=== PATIENT | male | born 1940 | race African-American/Black ===

== ENCOUNTER 2018-01-23 12:30 | Outpatient (CLI) | payer MEDICARE, BC ==
[2018-01-23 13:10] LABS: Bilirubin Negative (Negative); Blood, Urine Trace (Negative); Glucose, Urine (Dipstick) 250 mg/dL (Negative); Leukocyte Trace (Negative); Nitrite Negative (Negative); Protein, Urine (Dipstick) Negative (Neg-Trace); Specific Gravity, Urine 1.025 (1.005-1.030); Urobilinogen 0.2 mg/dL (0.2-1.0); pH, Urine 5.5 (5.0-9.0)
[2018-01-23 13:20] LABS: Anion Gap 12 mmol/L (10-20); BUN (Urea Nitrogen) 13 mg/dL (8.4-25.7); Calc. Creatinine Clearance 0 mL/min (70-130); Calcium 10.2 mg/dL (7.8-10.44); Carbon Dioxide 26 mmol/L (23-31); Chloride 107 mmol/L (98-107); Estimated GFR-MDRD Greater than 90; Glucose 111 mg/dL (83-110); Potassium 3.9 mmol/L (3.5-5.1); Sodium 141 mmol/L (136-145)
[2018-01-23 13:29] LABS: Clarity Hazy (Clear); RBC/HPF 0-3 HPF (0-3)
[2018-01-23 13:30] LABS: Bacteria/HPF 1+ HPF (None Seen); Squamous Epithelial None Seen HPF (0-3); WBC/HPF 0-3 HPF (0-3)
--- NOTE | 2018-01-23 14:40 | ULT ---
BILATERAL RENAL ULTRASOUND: Date: 01/23/18 COMPARISON: 10/15/16. HISTORY: Polycystic kidney. TECHNIQUE: Sagittal and transverse imaging of the kidneys is performed. FINDINGS: Right kidney measures 9.6 x 5.4 x 5.3 cm. There is an anechoic focus in the right renal pelvis, maria del rosario tible with a parapelvic cyst measuring 0.8 x 0.7 x 0.7 cm. There is a second anechoic focus in the lo wer pole of the right kidney measuring 0.9 cm, also likely due to a small parapelvic cyst. Left kidney measures 11.5 x 6.0 x 6.4 cm. There are multiple anechoic foci in the left kidney compati ble with renal cysts. The largest cyst measures 2.8 x 2.5 x 3.0 cm. No hydronephrosis. Prostate is enlarged, measuring 6.2 x 5.6 x 6.1 cm. Urinary bladder is unremarkable. IMPRESSION: 1. No hydronephrosis. 2. Multiple anechoic foci involving the left kidney, similar to the previous examination suggesting multiple left renal cysts. Right parapelvic cysts are also noted. 3. Enlarged prostate gland. POS: [facility]
--- NOTE | 2018-01-23 14:41 | RAD ---
ONE VIEW ABDOMEN: History: Polycystic kidney disease. Renal calculi. Comparison: 10-15-16 FINDINGS: Nonspecific bowel gas pattern. Scattered fecal material in a nondistended, nondilated colon. Nonspeci fic hyperdensity in the right upper quadrant may represent metal. Etiology is uncertain. No renal calculi. IMPRESSION: Nonspecific bowel gas pattern as above. Questionable metallic density projecting over the right upper quadrant, not appreciated on the prior exam. POS: [facility]
== END 2018-01-23 12:31 | disposition home or self-care (01) ==
LOC: SCSULT 12:30
PROVIDERS: ATTEND Urology
DX: N40.0 Benign prostatic hyperplasia without lower urinary tract symptoms (principal); Q61.3 Polycystic kidney, unspecified; Z87.442 Personal history of urinary calculi
CPT/HCPCS: 36415; 74018; 76770; 80048; 81001; 87077; 87086; 87186

== ENCOUNTER 2018-07-15 10:21 | Outpatient (CLI) | payer MEDICARE, BC ==
[2018-07-15 11:39] LABS: Mean Corpuscular HGB CONC 32.8 g/dL (32.0-36.0); Mean Corpuscular Hemoglobin 30.1 pg (27.0-31.0); Mean Corpuscular Volume 91.9 fL (78.0-98.0); Mean Platelet Volume 8.4 fL (7.4-10.4); Platelet Count 234 thou/uL (130-400); RBC Distribution Width 11.9 % (11.5-14.5); Red Blood Cell (RBC) Count 5.32 mill/uL (4.70-6.10); White Blood Cell (WBC) Count 5.6 thou/uL (4.8-10.8)
[2018-07-15 11:46] LABS: Bilirubin Negative (Negative); Blood, Urine Negative (Negative); Clarity CLEAR (Clear); Glucose, Urine (Dipstick) Negative (Negative); Leukocyte Small (Negative); Nitrite Negative (Negative); Protein, Urine (Dipstick) Negative (Neg-Trace); Specific Gravity, Urine 1.022 (1.002-1.036); Urobilinogen 0.2 mg/dL (0.2-1.0); pH, Urine 5.5 (5.0-9.0)
[2018-07-15 11:48] LABS: Bacteria/HPF None Seen HPF (None Seen); Hyaline Casts/LPF 0-3 HYALINE CAST LPF (0-3 Hyaline); PTT 26.1 SEC (22.9-36.1); Pathc Cast-AUWi Flag 0.14 (0-2.49); Prothrombin Time 13.1 SEC (12.0-14.7); Squamous Epithelial None Seen HPF (0-3)
[2018-07-15 12:02] LABS: Anion Gap 14 mmol/L (10-20); BUN (Urea Nitrogen) 12 mg/dL (8.4-25.7); Calc. Creatinine Clearance 0 mL/min (70-130); Calcium 9.9 mg/dL (7.8-10.44); Carbon Dioxide 22 mmol/L (23-31); Chloride 105 mmol/L (98-107); Estimated GFR-MDRD Greater than 90; Glucose 109 mg/dL (83-110)
[2018-07-15 12:23] LABS: Sodium 137 mmol/L (136-145)
== END 2018-07-15 10:22 | disposition home or self-care (01) ==
LOC: LABBT 10:21
PROVIDERS: ATTEND Urology
DX: Z01.818 Encounter for other preprocedural examination (principal); N40.0 Benign prostatic hyperplasia without lower urinary tract symptoms; N35.919 Unspecified urethral stricture, male, unspecified site
CPT/HCPCS: 80048; 81001; 85027; 85610; 85730; 87086; 93005; 93010

== ENCOUNTER 2018-07-25 09:44 | Outpatient (CLI) | payer MEDICARE, BC | END 2018-07-25 09:45 | disposition home or self-care (01) | LOC: LABBT 09:44 | PROVIDERS: ATTEND Urology | DX: Z01.812 Encounter for preprocedural laboratory examination (principal); N40.0 Benign prostatic hyperplasia without lower urinary tract symptoms; N35.911 Unspecified urethral stricture, male, meatal | CPT/HCPCS: 86850; 86900; 86901 ==

== ENCOUNTER 2018-07-30 06:48 | Observation (INO) | payer MEDICARE, BC ==
[2018-07-30] MEDS ORDERED: Levofloxacin 500 mg/D5W 100 ml Premix Bag ONE (07:40)
[2018-07-30] MEDS ORDERED: cefTRIAXone\\ROCEPHIN 1 GM VIAL ONE (07:40)
[2018-07-30] MEDS ORDERED: Sodium Chloride 0.9% 100 ML ONE (07:40)
[2018-07-30] MEDS ORDERED: Iothalamate Meglumine 60% 50 ML VIAL FS ONE (08:37)
[2018-07-30] MEDS ORDERED: Fentanyl 100 MCG/2 ML VIAL ONE (08:43)
[2018-07-30] MEDS ORDERED: Famotidine/PF 20 mg/2ml Vial ONE (08:43)
[2018-07-30] MEDS ORDERED: SUGAMMADEX SODIUM 500 MG/5 ML VIAL ONE (12:34)
[2018-07-30] MEDS ORDERED: Oxybutynin 5 MG TAB PO PRN (12:51)
[2018-07-30] MEDS ORDERED: Acetaminophen 500 MG TAB PO PRN (12:51)
[2018-07-30] MEDS ORDERED: HYDROcodone/Acetaminophen 5/325 mg Tablet PO PRN ×2 (12:51)
[2018-07-30] MEDS ORDERED: Mag-Al 1200 mg/1200 mg/30 ML UDCUP PO PRN (12:51)
[2018-07-30] MEDS ORDERED: hydrALAZINE 20 MG/ML VIAL SLOW IVP PRN ×2 (12:51)
[2018-07-30] MEDS ORDERED: Ondansetron PF 4 MG/2 ML Vial IVP PRN (12:51)
[2018-07-30 13:18] LABS: #Lymphocytes 1.7 thou/uL (1.20-3.40); #Monocytes 0.3 thou/uL (0.11-0.59); #Neutrophils 5.9 thou/uL (1.40-6.50); %Basophils 0.5 % (0.0-1.0); %Eosinophils 0.5 % (0.0-10.0); %Lymphocytes 20.9 % (21.0-51.0); %Monocytes 3.9 % (0.0-10.0); %Neutrophils 74.2 % (42.0-75.0); Hemoglobin 13.8 g/dL (14.0-18.0); Mean Corpuscular HGB CONC 32.8 g/dL (32.0-36.0); Mean Corpuscular Hemoglobin 29.7 pg (27.0-31.0); Mean Corpuscular Volume 90.6 fL (78.0-98.0); Mean Platelet Volume 7.8 fL (7.4-10.4); Platelet Count 268 thou/uL (130-400); RBC Distribution Width 11.5 % (11.5-14.5); Red Blood Cell (RBC) Count 4.65 mill/uL (4.70-6.10); White Blood Cell (WBC) Count 7.9 thou/uL (4.8-10.8)
--- NOTE | 2018-07-30 13:24 | OP ---
DATE OF PROCEDURE: 07/30/2018 PREOPERATIVE DIAGNOSES: 1. A 77-year-old male with BPH with severe obstruction. 2. Bulbar urethral stricture. 3. 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 4. History of bladder stone. 5. History of urinary tract infection. POSTOPERATIVE DIAGNOSES: 1. A 77-year-old male with BPH with severe obstruction. 2. Bulbar urethral stricture. 3. 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 4. History of bladder stone. 5. History of urinary tract infection. PROCEDURES: Cystoscopy, bulbar urethral stricture dilatation, transurethral resection of prostate. SURGEON: Marilyn Melton D.O. ANESTHESIA: General. COMPLICATIONS: None apparent. DISPOSITION: To the recovery room in stable condition. SPECIMEN: TUR prostate. INTRAOPERATIVE FINDINGS: 1. Wide caliber bulbar stricture approximately 14-16 Moroccan caliber soft in nature. 2. Severe obstructing prostatic hyperplasia with high median bar. IV FLUIDS: 1500. EBL: Less than 150 mL. INDICATIONS FOR THE PROCEDURE AND HISTORY: Mr. Giordano is a 77-year-old male with history of left ureteral calculi, 8 mm bladder stone, status post treatment with resolution. He underwent transurethral microwave therapy in 2003 by [facility]. I had seen the patient previously as he presented with urinary retention, had self-inflicted traumatic removal of Goncalves catheter as he was frustrated with indwelling Goncalves catheter. He is managed with dual medical therapy on Flomax and Proscar. Recently had a UTI of concern and underwent cystoscopy demonstrating bulbar urethral stricture, 16-Moroccan with severe BPH noted. He underwent a prostate volume study demonstrating 153 grams and I have fully informed the patient regarding treatment options including simple prostatectomy versus TURP, which would most likely require staged intervention given his large prostate volume. He desired transurethral resection of prostate due to less invasive approach; however, with the full understanding that he will most likely require staged intervention given large prostate volume. Risks and complications of the procedure was reviewed with him in detail including, but not limited to, bleeding, pain, infection, injury to adjacent organs, urosepsis, bladder neck contracture, clot retention, incontinence recurrence of stricture formation, PE, DVT, perioperative morbidity and mortality incontinence. All questions answered to his satisfaction and he desired to proceed without reservation. DESCRIPTION OF THE PROCEDURE: After an informed consent is signed, the patient is taken to the operating room, placed in a dorsal lithotomy position. Bilateral MARIAM hose, SCDs, and broad-spectrum antibiotics were provided. A 21 Moroccan cystoscope was utilized for cystoscopy which demonstrated again large caliber bulbar urethral stricture approximately 16-Moroccan caliber. This appeared soft and I was able to pass the scope without significant issues. Prostatic hyperplasia, severe obstructing lateral lobes were noted with high median bar. The UO's were able to be identified approximately 3-4 mm away from the bladder neck on cystoscopy. There was no trabeculation, no bladder stones, no bladder tumors appreciated. At this time, using an [facility] visual obturator, a 26-Moroccan resectoscope sheath, I was able to pass the scope under visual guidance without significant issues. The urethral stricture was passively dilated atraumatically. The prostatic urethra and bladder neck was traversed. Using a bipolar gyrus TUR loop, we performed the prostate resection in classic Stephanie fashion. Good hemostasis was obtained throughout the procedure. His bladder neck was taken down to open to improve his obstruction as he did have a mass effect of the bladder neck from a large prostate lobe. There was a good channel TURP opening noted. We restaged his bulbar stricture which appeared to be well passively dilated. Although adenoma remains, significant obstructive component had improved with transurethral resection of prostate obstructing lobes. Due to elapsed time, we terminated the procedure; bladder neck open. All prostatic chips were evacuated with the [employer] evacuator. I was able to pass a 22-Moroccan 3-way without significant issues atraumatically. A 30 mL of sterile water was insufflated. CBI at a low rate demonstrated clear to light pink output. This was secured to gravity bag. He tolerated the procedure well and transported to the recovery room in stable condition. I will observe him overnight for 23-hour observation. If CBI remains clear, I anticipate patient should be discharged with indwelling Goncalves catheter as the stricture was concomitantly dilated. DESMOND
[2018-07-30 13:44] LABS: Anion Gap 10 mmol/L (10-20); BUN (Urea Nitrogen) 12 mg/dL (8.4-25.7); Calc. Creatinine Clearance 95 mL/min (70-130); Calcium 8.6 mg/dL (7.8-10.44); Carbon Dioxide 24 mmol/L (23-31); Chloride 108 mmol/L (98-107); Estimated GFR-MDRD Greater than 90; Glucose 151 mg/dL (83-110); Potassium 4.1 mmol/L (3.5-5.1); Sodium 138 mmol/L (136-145)
[2018-07-30] MEDS ORDERED: PHENYLEPHRINE-NS 100 MCG/ML 10 ML SYRINGE ONE (14:23)
[2018-07-30] MEDS ORDERED: Lidocaine 1% PF 5 ML VIAL ONE (14:23)
[2018-07-30] MEDS ORDERED: Dexamethasone 20 MG/5 ML VIAL ONE (14:23)
[2018-07-30] MEDS ORDERED: Ondansetron PF 4 MG/2 ML Vial ONE (14:23)
[2018-07-30] MEDS ORDERED: Esmolol 100 MG/10 ML VIAL ONE (14:23)
[2018-07-30] MEDS ORDERED: PROPOFOL 200 MG/20 ML VIAL ONE (14:23)
[2018-07-30 15:21] VITALS: BMI 30.9
[2018-07-30] MEDS: cefTRIAXone\\ROCEPHIN 1 GM in Sodium Chloride 0.9% 100 ML IVPB SCH (15:34)
[2018-07-30] MEDS: Sodium Chloride 0.9% 1,000 ML IV SCH (15:34)
[2018-07-30] MEDS: Famotidine/PF 20 mg/2ml Vial SLOW IVP SCH (21:06)
[2018-07-30] MEDS: Docusate 100 MG CAP PO SCH (21:06)
[2018-07-31] MEDS: Sodium Chloride 0.9% 1,000 ML IV SCH ×3 (00:15→20:08)
[2018-07-31 06:06] LABS: #Lymphocytes 1.4 thou/uL (1.20-3.40); #Monocytes 1.2 thou/uL (0.11-0.59); %Basophils 0.1 % (0.0-1.0); %Eosinophils 0.3 % (0.0-10.0); %Lymphocytes 12.7 % (21.0-51.0); %Monocytes 10.9 % (0.0-10.0); Hemoglobin 12.4 g/dL (14.0-18.0); Mean Corpuscular HGB CONC 32.7 g/dL (32.0-36.0); Mean Corpuscular Hemoglobin 29.7 pg (27.0-31.0); Mean Corpuscular Volume 90.8 fL (78.0-98.0); Mean Platelet Volume 7.9 fL (7.4-10.4); Platelet Count 257 thou/uL (130-400); RBC Distribution Width 11.4 % (11.5-14.5); Red Blood Cell (RBC) Count 4.19 mill/uL (4.70-6.10); White Blood Cell (WBC) Count 10.6 thou/uL (4.8-10.8)
[2018-07-31 06:20] LABS: Anion Gap 7 mmol/L (10-20); BUN (Urea Nitrogen) 11 mg/dL (8.4-25.7); Calc. Creatinine Clearance 96 mL/min (70-130); Calcium 8.3 mg/dL (7.8-10.44); Carbon Dioxide 24 mmol/L (23-31); Chloride 111 mmol/L (98-107); Estimated GFR-MDRD Greater than 90; Glucose 129 mg/dL (83-110); Potassium 3.8 mmol/L (3.5-5.1); Sodium 138 mmol/L (136-145)
--- NOTE | 2018-07-31 07:45 | PRG ---
DATE OF SERVICE: 07/31/2018 SUBJECTIVE: The patient is doing well with no significant pain. PHYSICAL EXAMINATION: VITAL SIGNS: Stable. He is afebrile at 98.5, 78, 18, 95, 129/70. 2900 of urine output. CBI was held this morning at 5 demonstrating light red urine, no clots. ABDOMEN: Soft, nontender, nondistended. : Goncalves catheter adequately secured. I did flush the CBI tubing and there was immediate clearing of urine. EXTREMITIES: No cyanosis, clubbing or edema. LABORATORY DATA: White blood cell count 10, hemoglobin 12.4, platelets 257. BUN 11, creatinine 0.88. IMPRESSION AND PLAN: 1. Mr. Giordano is a 77-year-old male with history of benign prostatic hypertrophy with severe obstruction. 2. History of urinary tract infection. 3. History of bladder stone, postop day #1 status post TURP, urethral stricture dilatation. We will monitor the patient off the CBI today. If his urine output clears throughout the rest of the day, possibly discharge home with indwelling Goncalves catheter. If there is persistent hematuria of concern, which warrants observation I will keep him for another day. He is hemodynamically stable. Continue present management. DESMOND
[2018-07-31] MEDS: cefTRIAXone\\ROCEPHIN 1 GM in Sodium Chloride 0.9% 100 ML IVPB SCH (08:40)
[2018-07-31] MEDS: Famotidine/PF 20 mg/2ml Vial SLOW IVP SCH ×2 (08:41→20:10)
[2018-07-31] MEDS: Tamsulosin HCl 0.4 MG CAP PO SCH (08:41)
[2018-07-31] MEDS: Finasteride 5 MG TAB PO SCH (08:41)
[2018-07-31] MEDS: Docusate 100 MG CAP PO SCH ×2 (08:41→20:09)
[2018-07-31] MEDS ORDERED: Tamsulosin HCl 0.4 MG CAP PO SCH (09:00)
[2018-08-01] MEDS: Sodium Chloride 0.9% 1,000 ML IV SCH (05:11)
[2018-08-01] MEDS ORDERED: cefTRIAXone\\ROCEPHIN 1 GM in Sodium Chloride 0.9% 100 ML IVPB SCH (08:00)
[2018-08-01] MEDS ORDERED: Amlodipine 5 MG TAB PO SCH (09:00)
[2018-08-01] MEDS: cefTRIAXone\\ROCEPHIN 1 GM in Sodium Chloride 0.9% 100 ML IVPB SCH (09:06)
[2018-08-01] MEDS: Docusate 100 MG CAP PO SCH (09:10)
[2018-08-01] MEDS: Finasteride 5 MG TAB PO SCH (09:10)
[2018-08-01] MEDS: Famotidine/PF 20 mg/2ml Vial SLOW IVP SCH (09:11)
[2018-08-01] MEDS: Tamsulosin HCl 0.4 MG CAP PO SCH (09:11)
[2018-08-01 09:19] VITALS: BP 143/76
[2018-08-01 11:36] VITALS: TEMP 98.7
--- NOTE | 2018-08-01 12:15 | DIS ---
DATE OF ADMISSION: 07/30/2018 DATE OF DISCHARGE: 08/01/2018 DISPOSITION: Home. Admitting diagnosis. BPH, history of urethral stricture, UTI. CONDITION: Stable with self-care, excellent family assist. DISCHARGE MEDICATIONS: Include VESIcare 5 mg one p.o. daily #6, Ciprofloxacin 500 mg 1 p.o. b.i.d. x7 days, Colace 100 mg 1 p.o. b.i.d., [place] 5/325, #40, 1- 2 p.o. q.6-8 hours p.r.n. The patient is to resume home medications. No aspirin, ibuprofen products. DISCHARGE INSTRUCTIONS: No heavy lifting or strenuous activity. Goncalves catheter to leg bag gravity bag instructions provided. BRIEF HOSPITAL COURSE: Mr. Giordano is a 77-year-old -[place] male with a very large prostate volume, he has had a prior history of bladder stones, which was treated, he has a history of bulbar stricture as well, he had a traumatic Goncalves catheter removal few years ago with prior history of urinary retention, he presents for transurethral resection of prostate. Given large prostate volume, he has been fully informed regarding possible staged intervention. He underwent cystoscopy, TURP, dilation of bulbar stricture uneventfully. His CBI was held on postop day #1 with red tinged urine with subsequent clearing. On afternoon rounds, his urine output was clear enough to be discharged; however, due to late in the afternoon, and living far away from [facility], desired to be observed for 1 more day. His CBI was held this morning with michelle clear urine with minimal sediment. The patient is stable to be discharged. DESMOND
== END 2018-08-01 11:45 | disposition home or self-care (01) ==
LOC: SDC 06:48 → SURG B 15:36
PROVIDERS: ADMIT Urology; ATTEND Urology
PROC: 0VT08ZZ Resection of Prostate, Via Natural or Artificial Opening Endoscopic (ICD-10-PCS; principal; 2018-07-30)
DX: N41.1 Chronic prostatitis (principal); N35.912 Unspecified bulbous urethral stricture, male; E78.5 Hyperlipidemia, unspecified; R73.03 Prediabetes; I10 Essential (primary) hypertension; N28.1 Cyst of kidney, acquired; Z87.442 Personal history of urinary calculi; Z98.890 Other specified postprocedural states; Z79.899 Other long term (current) drug therapy
CPT/HCPCS: 52601; 80048 ×2; 85025 ×2; 88305; 90662; 96361 ×3; 96365; 96375; 96376 ×2; G0008; G0378; 36415; 90471; J0131; J0696; J1100; J1956; J2001; J2405; J2704; J3010; J7050; Q9961; S0028

== ENCOUNTER 2018-11-01 16:23 | Emergency (ER) | payer MEDICARE, BC ==
[~2018-11-01 16:23] MED LIST: ISOVUE-370 76%-LOCM 1 ML ONE
[2018-11-01] MEDS ORDERED: Lorazepam 2 MG/ML VIAL ONE (16:33)
[2018-11-01] MEDS ORDERED: Aspirin Chewable 81 MG TAB ONE (16:54)
[2018-11-01 17:43] LABS: #Lymphocytes 0.5 thou/uL (1.20-3.40); #Monocytes 0.2 thou/uL (0.11-0.59); %Basophils 0.8 % (0.0-1.0); %Eosinophils 0.1 % (0.0-10.0); %Lymphocytes 8.3 % (21.0-51.0); %Monocytes 3.8 % (0.0-10.0); Hemoglobin 15.1 g/dL (14.0-18.0); Mean Corpuscular HGB CONC 32.2 g/dL (32.0-36.0); Mean Corpuscular Hemoglobin 29.4 pg (27.0-31.0); Mean Corpuscular Volume 91.3 fL (78.0-98.0); Mean Platelet Volume 8.1 fL (7.4-10.4); Platelet Count 251 thou/uL (130-400); RBC Distribution Width 11.6 % (11.5-14.5); Red Blood Cell (RBC) Count 5.14 mill/uL (4.70-6.10); White Blood Cell (WBC) Count 5.7 thou/uL (4.8-10.8)
[2018-11-01 17:50] LABS: Prothrombin Time 13.1 SEC (12.0-14.7)
[2018-11-01 17:52] LABS: PTT 22.7 SEC (22.9-36.1)
[2018-11-01 18:10] LABS: ALT (SGPT) 17 U/L (8-55); AST (SGOT) 17 U/L (5-34); Albumin 4.2 g/dL (3.4-4.8); Alkaline Phosphatase 75 U/L (40-150); Anion Gap 12 mmol/L (10-20); BUN (Urea Nitrogen) 11 mg/dL (8.4-25.7); Bilirubin, Total 0.5 mg/dL (0.2-1.2); Calc. Creatinine Clearance 0 mL/min (70-130); Carbon Dioxide 26 mmol/L (23-31); Chloride 106 mmol/L (98-107); Estimated GFR-MDRD 89; Globulin 3.6 g/dL (2.4-3.5); Glucose 147 mg/dL (83-110); Potassium 4.3 mmol/L (3.5-5.1); Protein, Total 7.8 g/dL (5.8-8.1); Sodium 140 mmol/L (136-145)
--- NOTE | 2018-11-01 19:23 | CT ---
CT ARTERIOGRAM NECK WITH IV CONTRAST AND 3D MIP IMAGING CT ARTERIOGRAM HEAD WITH IV CONTRAST AND 3D MIP IMAGING CT BRAIN WITH AND WITHOUT IV CONTRAST 11/22/18 HISTORY: Altered mental status. Nausea and vomiting, dizziness. FINDINGS: There is no evidence of acute intracranial hemorrhage or infarct. The ventricles appear normal in siz e, shape, and position. No abnormal areas of contrast enhancement. Mild scarring at the lung apices. There is bovine origin of the left carotid arteries from the brachi ocephalic trunk. 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 Mild arterial ca lcifications. Good flow into each internal carotid and vertebral system. Mild plaque at each carotid bifurcation without significant stenosis. Calcification within the intracranial carotid siphons. No s ignificant stenosis or evidence of aneurysm. IMPRESSION: No acute intracranial abnormalities are demonstrated. Mild atherosclerosis. No acute vascular abnormalities are demonstrated. POS: [facility]
== END 2018-11-01 19:51 | disposition home or self-care (01) ==
LOC: ERS 16:23
DX: R42 Dizziness and giddiness (principal); I10 Essential (primary) hypertension; N40.0 Benign prostatic hyperplasia without lower urinary tract symptoms; Z79.899 Other long term (current) drug therapy
CPT/HCPCS: 36415; 36416; 70496; 80053; 84484; 85025; 85610; 85730; 93005; 96374; 96375; J2060; Q9966

== ENCOUNTER 2018-11-19 09:44 | Emergency (ER) | payer MEDICARE, BC ==
[2018-11-19 10:25] LABS: #Lymphocytes 1.1 thou/uL (1.20-3.40); #Monocytes 0.5 thou/uL (0.11-0.59); #Neutrophils 3.3 thou/uL (1.40-6.50); %Basophils 0.4 % (0.0-1.0); %Eosinophils 0.5 % (0.0-10.0); %Lymphocytes 22.6 % (21.0-51.0); %Monocytes 9.9 % (0.0-10.0); %Neutrophils 66.6 % (42.0-75.0); Hemoglobin 15.7 g/dL (14.0-18.0); Mean Corpuscular Volume 90.8 fL (78.0-98.0); Mean Platelet Volume 8.3 fL (7.4-10.4); Platelet Count 224 thou/uL (130-400); RBC Distribution Width 11.9 % (11.5-14.5); Red Blood Cell (RBC) Count 5.39 mill/uL (4.70-6.10)
[2018-11-19] MEDS ORDERED: Lorazepam 2 MG/ML VIAL ONE (10:35)
[2018-11-19] MEDS ORDERED: Meclizine HCl 25 MG TAB ONE (10:36)
[2018-11-19] MEDS ORDERED: Dexamethasone 4 mg/ml Vial ONE (10:36)
[2018-11-19] MEDS ORDERED: Ondansetron PF 4 MG/2 ML Vial ONE (10:36)
[2018-11-19 10:57] LABS: ALT (SGPT) 15 U/L (8-55); AST (SGOT) 18 U/L (5-34); Albumin 4.4 g/dL (3.4-4.8); Alkaline Phosphatase 74 U/L (40-150); Anion Gap 15 mmol/L (10-20); BUN (Urea Nitrogen) 11 mg/dL (8.4-25.7); Bilirubin, Total 0.9 mg/dL (0.2-1.2); CK (CPK) 165 U/L (30-200); Calc. Creatinine Clearance 0 mL/min (70-130); Calcium 10.3 mg/dL (7.8-10.44); Carbon Dioxide 24 mmol/L (23-31); Chloride 104 mmol/L (98-107); Estimated GFR-MDRD Greater than 90; Globulin 3.7 g/dL (2.4-3.5); Glucose 104 mg/dL (83-110); Lipase 16 U/L (8-78); Protein, Total 8.1 g/dL (5.8-8.1); Sodium 139 mmol/L (136-145)
--- NOTE | 2018-11-19 12:08 | CT ---
HEAD CT WITHOUT CONTRAST: History: Altered mental status, dizziness. Comparison: 11-01-18 FINDINGS: No parenchymal hemorrhage. No extraaxial hematoma. No midline shift. Basilar cisterns are patent. Age appropriate atrophy. Cortical sanchez white matter differentiation is preserved. Ventricles and sulci are patent and symmetric. Adequate aeration of the sinuses and mastoid air cells. Intact calvarium. There is cavernous carotid atherosclerosis. IMPRESSION: No acute intracranial process. POS: [facility]
== END 2018-11-19 11:45 | disposition home or self-care (01) ==
LOC: ERS 09:44
DX: R42 Dizziness and giddiness (principal); I10 Essential (primary) hypertension; Z87.442 Personal history of urinary calculi; Z79.899 Other long term (current) drug therapy
CPT/HCPCS: 70450; 80053; 82550; 83690; 84484; 85025; 93005; 96361; 96374; 96375; J1100; J2060; J2405

== ENCOUNTER 2020-03-21 16:55 | Emergency (ER) | payer MEDICARE, BC, OTHER | END 2020-03-21 17:15 | disposition home or self-care (01) | LOC: ERS 16:55 | DX: U07.1 COVID-19 (principal); I10 Essential (primary) hypertension; N40.0 Benign prostatic hyperplasia without lower urinary tract symptoms; Z79.899 Other long term (current) drug therapy | CPT/HCPCS: 99283; U0003; 87635 ==

== ENCOUNTER 2020-04-04 13:00 | Emergency (ER) | payer MEDICARE, BC, OTHER ==
[2020-04-04 14:31] LABS: Bacteria/HPF None Seen HPF (None Seen); Bilirubin Negative (Negative); Blood, Urine Negative (Negative); Clarity Clear (Clear); Glucose, Urine (Dipstick) Normal (Negative); Ketone, Urine Negative (Negative); Leukocyte 75 Leu/uL (Negative); Mucous/LPF 1+ LPF (<2+); Nitrite Negative (Negative); Protein, Urine (Dipstick) 30 mg/dL (Neg-Trace); RBC/HPF 0-3 HPF (0-3); Specific Gravity, Urine 1.011 (1.002-1.036); Squamous Epithelial 0-3 HPF (0-3)
--- NOTE | 2020-04-04 14:45 | RAD ---
EXAM: Single view of the chest HISTORY: Shortness of breath and Covid positive COMPARISON: 02/18/2012 FINDINGS: Single view of the chest shows a normal sized cardiomediastinal silhouette. There is no dolly dence of consolidation, mass, or pleural effusion. Degenerative changes are seen in the spine. IMPRESSION: No evidence of acute cardiopulmonary disease
[2020-04-04 14:49] LABS: #Lymphocytes 0.7 thou/uL (1.20-3.40); #Monocytes 0.7 thou/uL (0.11-0.59); #Neutrophils 4.1 thou/uL (1.40-6.50); %Basophils 0.7 % (0.0-1.0); %Eosinophils 0.4 % (0.0-10.0); %Lymphocytes 12.9 % (21.0-51.0); %Monocytes 13.1 % (0.0-10.0); %Neutrophils 72.9 % (42.0-75.0); Hemoglobin 13.9 g/dL (14.0-18.0); Mean Corpuscular HGB CONC 32.7 g/dL (32.0-36.0); Mean Corpuscular Hemoglobin 29.5 pg (27.0-31.0); Mean Corpuscular Volume 90.3 fL (78.0-98.0); Mean Platelet Volume 8.6 fL (7.4-10.4); Platelet Count 262 thou/uL (130-400); RBC Distribution Width 11.4 % (11.5-14.5); Red Blood Cell (RBC) Count 4.73 mill/uL (4.70-6.10); White Blood Cell (WBC) Count 5.7 thou/uL (4.8-10.8)
[2020-04-04 15:11] LABS: ALT (SGPT) 53 U/L (8-55); AST (SGOT) 48 U/L (5-34); Albumin 3.6 g/dL (3.4-4.8); Alkaline Phosphatase 54 U/L (40-110); Anion Gap 11 mmol/L (10-20); BUN (Urea Nitrogen) 9 mg/dL (8.4-25.7); Bilirubin, Total 0.6 mg/dL (0.2-1.2); Calc. Creatinine Clearance 0 mL/min (70-130); Calcium 9.3 mg/dL (7.8-10.44); Carbon Dioxide 28 mmol/L (23-31); Chloride 103 mmol/L (98-107); Estimated GFR-MDRD Greater than 90; Globulin 3.7 g/dL (2.4-3.5); Glucose 107 mg/dL (83-110); Potassium 3.6 mmol/L (3.5-5.1); Protein, Total 7.3 g/dL (5.8-8.1); Sodium 138 mmol/L (136-145)
[2020-04-04] MEDS ORDERED: Ondansetron PF 4 MG/2 ML Vial ONE (16:18)
[2020-04-06 12:12] LABS: SARS-CoV-2 MS2 Positive; SARS-CoV-2 N Gene Negative; SARS-CoV-2 S Gene Negative; SARS-CoV-2 orf1ab Negative
== END 2020-04-04 20:21 ==
LOC: ERS 13:00
DX: R53.81 Other malaise (principal); Z20.828 Contact with and (suspected) exposure to other viral communicable diseases; I10 Essential (primary) hypertension; Z79.899 Other long term (current) drug therapy; N40.0 Benign prostatic hyperplasia without lower urinary tract symptoms
CPT/HCPCS: 71045; 80053; 83605; 83880; 85025; 87040; 93005; 94760; 99285; U0003; 36415; 81003; 81015; 87635; J2405

== ENCOUNTER 2021-06-26 15:01 | Outpatient (CLI) | payer MEDICARE, BC | END 2021-06-26 15:02 | disposition home or self-care (01) | LOC: BICRAD 15:01 | PROVIDERS: ATTEND Urology | DX: N20.0 Calculus of kidney (principal); N28.1 Cyst of kidney, acquired; N40.1 Benign prostatic hyperplasia with lower urinary tract symptoms; N13.8 Other obstructive and reflux uropathy | CPT/HCPCS: 74018 ==

== ENCOUNTER 2022-06-04 11:13 | Outpatient (CLI) | payer MEDICARE, BC | END 2022-06-04 11:14 | disposition home or self-care (01) | LOC: EDBD 11:13 → RAD 11:13 | PROVIDERS: ATTEND Urology | DX: N40.1 Benign prostatic hyperplasia with lower urinary tract symptoms (principal); N28.1 Cyst of kidney, acquired; N20.0 Calculus of kidney | CPT/HCPCS: 74018 ==

== ENCOUNTER 2023-07-09 09:53 | Outpatient (CLI) | payer MEDICARE, BC ==
[2023-07-09] MEDS ORDERED: Iopamidol 370 76% 100 ML VIAL ONE (15:23)
== END 2023-07-09 09:54 | disposition home or self-care (01) ==
LOC: CT 09:53
PROVIDERS: ATTEND Urology
DX: N32.89 Other specified disorders of bladder (principal); R31.29 Other microscopic hematuria; D17.9 Benign lipomatous neoplasm, unspecified; Q61.9 Cystic kidney disease, unspecified; K40.90 Unilateral inguinal hernia, without obstruction or gangrene, not specified as recurrent
CPT/HCPCS: 74178; Q9967